=== PATIENT | female | born 1930 | race Caucasian/White ===

== ENCOUNTER 2017-02-02 11:11 | Inpatient (IN) | payer OTHER ==
[~2017-02-02] VITALS: Ht 170.2 cm; Wt 114.0 kg
[~2017-02-02 11:11] MED LIST: AMBIEN10 MG PO; ANTIVERT25 MG PO; BACTRIM,SEPT1 TABLET PO; CELEXA40 MG PO; ERYTHROMYC1 APPLICAT LEFT EYE; GEODON40 MG PO; GLIMEPIRIDE4 MG PO; KEFLEX500 MG PO; LATANOPROST2.5 ML BOTH EYES; LO-DOSE ASPIRIN81 M2 PO; PYRIDIUM100 MG PO; REMERON45 MG PO; SIMVASTATIN40 MG PO
[2017-02-02 12:39] LABS: BASOPHIL COUNT 0.1 K/uL (0-0.1); EOSINOPHIL COUNT 0.1 K/uL (0-0.3); HEMATOCRIT 40.3 % (36.0-46.0); IMMATURE GRANULOCYTE (%) 0.5 % (0.0-0.7); INSTRUMENT ABS NEUTROPHIL CT 6.8 K/uL; LYMPHOCYTE COUNT 1.2 K/uL (1.0-2.8); MCH 33.8 PG (29.0-34.0); MCHC 32.8 G/DL (30.0-36.0); MCV 103.3 FL (83-99); MEAN PLAT.VOLUME 9.6 uM^3 (9.5-12.4); MONOCYTE (%) 5.6 % (3-12); MONOCYTE COUNT 0.5 K/uL (0-0.8); NEUTROPHIL (%) 78.5 % (45-76); NEUTROPHIL COUNT 6.8 K/uL (1.8-6.4); PLATELET COUNT 223 K/uL (156-360); RBC DIS.WIDTH-CV 13.1 % (11.8-14.6); RBC DIS.WIDTH-SD 50.2 % (39-53); WHITE BLOOD COUNT 8.7 K/uL (4.1-10.2)
[2017-02-02 12:48] LABS: CHLORIDE 111 mEq/L (99-109); POTASSIUM 5.6 mEq/L (3.7-5.4); SODIUM 140 mEq/L (136-147)
[2017-02-02 12:49] LABS: GLUCOSE 222 mg/dL (70-99); INTER. NORMALIZED RATIO 1.1
[2017-02-02 12:51] LABS: ANION GAP 13 MEQ/L (2-14)
[2017-02-02 12:53] LABS: GFR ESTIMATE (CALCULATED) 15 mL/min/
[2017-02-02 12:54] LABS: UREA NITROGEN (BUN) 40 mg/dL (9-23)
[2017-02-02 12:59] LABS: TROP-I INTERPRETATION NEGATIVE; TROPONIN-I 0.04 ng/mL (0.0-0.30)
[2017-02-02] MEDS ORDERED: LORAZEPAM0.5 MG PO (15:23)
[2017-02-02 21:07] VITALS: BP 139/70
[2017-02-02 22:00] LABS: TROP-I INTERPRETATION NEGATIVE; TROPONIN-I 0.04 ng/mL (0.0-0.30)
[2017-02-03] VITALS (8 sets, daily range): BP systolic 126–192; BP diastolic 58–97
[2017-02-03 05:44] LABS: TROP-I INTERPRETATION NEGATIVE; TROPONIN-I 0.03 ng/mL (0.0-0.30)
[2017-02-03 11:25] LABS: POINT-OF-CARE METER ID UU14174216
[2017-02-03 14:19] LABS: TROP-I INTERPRETATION NEGATIVE; TROPONIN-I 0.03 ng/mL (0.0-0.30)
[2017-02-03 14:19] LABS: ADD MIUA? YES; BILIRUBIN NEGATIVE; BLOOD NEGATIVE; COLOR YELLOW ((YELLOW)); GLUCOSE (STRIP) NEGATIVE; KETONES NEGATIVE; LEUKOCYTES LARGE; NITRITE NEGATIVE; PROTEIN (STRIP) 30; SPECIFIC GRAVITY 1.012 (1.000-1.030); UROBILINOGEN 0.2 MG/DL (0.2-1.0)
[2017-02-03 14:40] LABS: BACTERIA 3+ /HPF; EPITHELIAL CELLS 2+ /HPF; MUCUS NONE SEEN /LPF; WHITE BLOOD CELLS TNTC /HPF (0-5); WHITE BLOOD CELLS CLUMP OCC /HPF (0-5)
[2017-02-03 14:42] LABS: UR CREATININE CONCENTRATION 145.6 MG/DL
[2017-02-03 16:17] LABS: POINT-OF-CARE METER ID UU13113781
[2017-02-03 20:10] LABS: POINT-OF-CARE METER ID UU13113781
[2017-02-03 21:05] LABS: TROP-I INTERPRETATION NEGATIVE; TROPONIN-I 0.04 ng/mL (0.0-0.30)
[2017-02-04 02:23] VITALS: BP 126/65
[2017-02-04 07:26] LABS: ANION GAP 11 MEQ/L (2-14); CHLORIDE 116 MEQ/L (99-109); GFR ESTIMATE (CALCULATED) 16 mL/min/; POTASSIUM 4.6 MEQ/L (3.7-5.4); SAMPLE HEMOLYSIS CHECK 0; SAMPLE ICTERIC CHECK 0; SAMPLE LIPEMIA CHECK 0; SODIUM 144 MEQ/L (136-147); UREA NITROGEN (BUN) 42 mg/dL (9-23); URIC ACID 9.2 mg/dL (3.1-9.2)
[2017-02-04 07:30] VITALS: BP 159/72
[2017-02-04 07:33] LABS: GLUCOSE 97 mg/dL (70-99)
[2017-02-04 07:39] LABS: POINT-OF-CARE METER ID UU13113781
[2017-02-04 09:32] LABS: BASOPHIL COUNT 0.1 K/uL (0-0.1); EOSINOPHIL (%) 5.3 % (0-5); EOSINOPHIL COUNT 0.4 K/uL (0-0.3); HEMATOCRIT 33.3 % (36.0-46.0); IMMATURE GRANULOCYTE (%) 0.4 % (0.0-0.7); INSTRUMENT ABS NEUTROPHIL CT 4.9 K/uL; LYMPHOCYTE COUNT 1.5 K/uL (1.0-2.8); MCH 34.5 PG (29.0-34.0); MCHC 32.1 G/DL (30.0-36.0); MEAN PLAT.VOLUME 9.4 uM^3 (9.5-12.4); MONOCYTE COUNT 0.5 K/uL (0-0.8); NEUTROPHIL (%) 65.9 % (45-76); NEUTROPHIL COUNT 4.9 K/uL (1.8-6.4); PLATELET COUNT 162 K/uL (156-360); RBC DIS.WIDTH-SD 51.6 % (39-53); WHITE BLOOD COUNT 7.4 K/uL (4.1-10.2)
[2017-02-04 09:33] LABS: MCV 107.4 FL (83-99)
[2017-02-04 11:20] LABS: POINT-OF-CARE METER ID UU13113781
[2017-02-04 12:13] VITALS: BP 111/61
[2017-02-04 16:33] LABS: POINT-OF-CARE METER ID UU14174216
[2017-02-04 16:39] VITALS: BP 120/59
[2017-02-04 19:33] VITALS: BP 119/70
[2017-02-04 21:55] LABS: POINT-OF-CARE METER ID UU13113781
[2017-02-04 23:27] VITALS: BP 121/57
[2017-02-05 04:45] VITALS: BP 116/67
[2017-02-05 07:02] LABS: INTER. NORMALIZED RATIO 1.1; PROTHROMBIN TIME 11.2 (9.2-11.2); PTT 61.5 (25-32)
[2017-02-05 07:43] VITALS: BP 130/63
[2017-02-05 08:53] LABS: ANION GAP 9 MEQ/L (2-14); CHLORIDE 117 MEQ/L (99-109); GFR ESTIMATE (CALCULATED) 18 mL/min/; GLUCOSE 119 mg/dL (70-99); POTASSIUM 4.9 MEQ/L (3.7-5.4); SAMPLE HEMOLYSIS CHECK 0; SAMPLE ICTERIC CHECK 0; SAMPLE LIPEMIA CHECK 0; SODIUM 145 MEQ/L (136-147); UREA NITROGEN (BUN) 39 mg/dL (9-23)
[2017-02-05 11:42] VITALS: BP 98/51
[2017-02-05 12:09] LABS: POINT-OF-CARE METER ID UU14174216
[2017-02-05 15:05] VITALS: BP 128/59
[2017-02-05 20:03] VITALS: BP 126/60
[2017-02-05 20:56] LABS: POINT-OF-CARE METER ID UU14174216; POINT-OF-CARE USER ID ENVMNS
[2017-02-05 23:23] VITALS: BP 116/70
[2017-02-06 04:07] VITALS: BP 123/94
[2017-02-06 07:03] LABS: EOSINOPHIL (%) 6.3 % (0-5); EOSINOPHIL COUNT 0.4 K/uL (0-0.3); HEMATOCRIT 31.1 % (36.0-46.0); IMMATURE GRANULOCYTE (%) 0.2 % (0.0-0.7); INSTRUMENT ABS NEUTROPHIL CT 3.5 K/uL; LYMPHOCYTE COUNT 1.7 K/uL (1.0-2.8); MCH 33.2 PG (29.0-34.0); MCHC 30.9 G/DL (30.0-36.0); MCV 107.6 FL (83-99); MEAN PLAT.VOLUME 9.3 uM^3 (9.5-12.4); MONOCYTE (%) 10.2 % (3-12); MONOCYTE COUNT 0.7 K/uL (0-0.8); NEUTROPHIL (%) 55.3 % (45-76); NEUTROPHIL COUNT 3.5 K/uL (1.8-6.4); PLATELET COUNT 186 K/uL (156-360); RBC DIS.WIDTH-SD 51.2 % (39-53); RED BLOOD COUNT 2.89 M/uL (3.80-5.20); WHITE BLOOD COUNT 6.4 K/uL (4.1-10.2)
[2017-02-06 07:58] LABS: ANION GAP 7 MEQ/L (2-14); CHLORIDE 119 MEQ/L (99-109); GFR ESTIMATE (CALCULATED) 19 mL/min/; GLUCOSE 103 mg/dL (70-99); POTASSIUM 5.1 MEQ/L (3.7-5.4); SAMPLE HEMOLYSIS CHECK 0; SAMPLE ICTERIC CHECK 0; SAMPLE LIPEMIA CHECK 0; SODIUM 146 MEQ/L (136-147); UREA NITROGEN (BUN) 33 mg/dL (9-23)
[2017-02-06 08:17] VITALS: BP 124/57
[2017-02-06 10:52] VITALS: BP 119/55
[2017-02-06 14:49] VITALS: BP 119/57
[2017-02-06 20:13] VITALS: BP 143/65
[2017-02-06 23:21] VITALS: BP 127/59
[2017-02-07 04:26] VITALS: BP 140/63
[2017-02-07 07:51] VITALS: BP 130/58
[2017-02-07 11:59] VITALS: BP 130/63
[2017-02-07 15:53] VITALS: BP 115/53
[2017-02-07 19:47] VITALS: BP 187/87
[2017-02-07 20:40] LABS: POINT-OF-CARE METER ID UU13113781
[2017-02-07 23:00] VITALS: BP 145/64
[2017-02-08 04:40] VITALS: BP 140/63
[2017-02-08 06:38] LABS: IRON 61 MCG/DL (35-150)
[2017-02-08 07:47] VITALS: BP 140/65
[2017-02-08 08:01] LABS: ANION GAP 8 MEQ/L (2-14); CHLORIDE 118 MEQ/L (99-109); GFR ESTIMATE (CALCULATED) 19 mL/min/; GLUCOSE 114 mg/dL (70-99); POTASSIUM 4.8 MEQ/L (3.7-5.4); SODIUM 143 MEQ/L (136-147); UREA NITROGEN (BUN) 32 mg/dL (9-23)
[2017-02-08 11:15] LABS: POINT-OF-CARE METER ID UU13113781
[2017-02-08 11:23] VITALS: BP 109/43
[2017-02-08] MEDS ORDERED: CIPROFLOXACIN500 M1 PO (13:02)
[2017-02-08] MEDS ORDERED: NOVOLOG PE100 UNITS/ SC (13:08)
[2017-02-08] MEDS ORDERED: ELIQUIS5 MG PO (13:26)
[2017-02-08 14:42] VITALS: BP 128/60
== END 2017-02-08 16:32 | DRG 176 ==
LOC: EME 11:11 → 4EAST 17:40 → EDOF 17:40 → 4EAST 20:53
PROVIDERS: Emergency Medicine; Internal Medicine; Internal Medicine Nephrology
DX: I26.99 Other pulmonary embolism without acute cor pulmonale (principal); I82.432 Acute embolism and thrombosis of left popliteal vein; I82.412 Acute embolism and thrombosis of left femoral vein; E11.65 Type 2 diabetes mellitus with hyperglycemia; E66.9 Obesity, unspecified; Z68.37 Body mass index [BMI] 37.0-37.9, adult; E78.5 Hyperlipidemia, unspecified; N17.9 Acute kidney failure, unspecified; E78.00 Pure hypercholesterolemia, unspecified; I12.0 Hypertensive chronic kidney disease with stage 5 chronic kidney disease or end stage renal disease; E11.22 Type 2 diabetes mellitus with diabetic chronic kidney disease; N18.5 Chronic kidney disease, stage 5; E87.2 Acidosis; E87.5 Hyperkalemia; F31.81 Bipolar II disorder; Z87.891 Personal history of nicotine dependence; R06.00 Dyspnea, unspecified; I08.3 Combined rheumatic disorders of mitral, aortic and tricuspid valves; I27.2 Other secondary pulmonary hypertension
CPT/HCPCS: 71010; 71250; 74230; 76770; 78582; 80048; 81003; 82570; 82948; 83540; 83880; 84100; 84156; 84466; 84484; 84550; 85025; 85610; 85730; 92610 GN; 92611 GN; 93005; 93306; 93970; 94760; 94799; 97530 GP; 99281; 99285; A9540; A9567; J1815; J2405; J7030

== ENCOUNTER 2017-08-16 14:49 | Emergency (ER) | payer OTHER ==
[~2017-08-16] VITALS: Ht 167.6 cm; Wt 103.4 kg
[~2017-08-16 14:49] MED LIST changes: +CIPROFLOXACIN500 M1 PO; +ELIQUIS5 MG PO; +LORAZEPAM0.5 MG PO; +NOVOLOG PE100 UNITS/ SC
[2017-08-16 15:35] LABS: BASOPHIL COUNT 0.1 K/uL (0-0.1); EOSINOPHIL (%) 1.2 % (0-5); EOSINOPHIL COUNT 0.1 K/uL (0-0.3); HEMATOCRIT 34.5 % (36.0-46.0); IMMATURE GRANULOCYTE (%) 0.4 % (0.0-0.7); LYMPHOCYTE COUNT 2.2 K/uL (1.0-2.8); MEAN PLAT.VOLUME 9.1 uM^3 (9.5-12.4); MONOCYTE (%) 9.6 % (3-12); MONOCYTE COUNT 0.8 K/uL (0-0.8); NEUTROPHIL (%) 61.5 % (45-76); PLATELET COUNT 264 K/uL (156-360); RBC DIS.WIDTH-CV 12.9 % (11.8-14.6); RBC DIS.WIDTH-SD 47.2 % (39-53); RED BLOOD COUNT 3.45 M/uL (3.80-5.20); WHITE BLOOD COUNT 8.2 K/uL (4.1-10.2)
[2017-08-16 15:41] LABS: INTER. NORMALIZED RATIO 1.2; PROTHROMBIN TIME 13.4 SEC (10.2-12.9)
[2017-08-16 15:47] LABS: CHLORIDE 107 mEq/L (99-109); POTASSIUM 5.3 mEq/L (3.7-5.4); SODIUM 139 mEq/L (136-147)
[2017-08-16 15:48] LABS: GLUCOSE 131 mg/dL (70-99)
[2017-08-16 15:50] LABS: ANION GAP 11 MEQ/L (2-14)
[2017-08-16 15:52] LABS: GFR ESTIMATE (CALCULATED) 15 mL/min/
[2017-08-16 15:53] LABS: UREA NITROGEN (BUN) 28 mg/dL (9-23)
[2017-08-16] MEDS ORDERED: TYLENOL WITH C1 EACH PO (17:00)
[2017-08-16 17:20] VITALS: BP 159/63
== END 2017-08-16 17:30 | disposition home or self-care (01) ==
LOC: EME 14:49
PROVIDERS: Emergency Medicine
DX: M79.672 Pain in left foot (principal); M79.675 Pain in left toe(s); E11.22 Type 2 diabetes mellitus with diabetic chronic kidney disease; N18.9 Chronic kidney disease, unspecified; E78.5 Hyperlipidemia, unspecified; Z86.718 Personal history of other venous thrombosis and embolism; Z86.711 Personal history of pulmonary embolism; Z79.01 Long term (current) use of anticoagulants; Z79.82 Long term (current) use of aspirin
CPT/HCPCS: 80048; 85025; 85610; 93971; 99281; 99284